=== PATIENT | female | born 1995 | race African-American/Black ===

== ENCOUNTER 2021-05-16 15:53 | Emergency (ER) | payer MEDICAID ==
[~2021-05-16] VITALS: Ht 162.6 cm; Wt 77.0 kg
[2021-05-16 16:05] VITALS: BP 131/91
[2021-05-16 17:16] LABS: CLARITY URINE CLOUDY (CLEAR); COLOR URINE YELLOW (YELLOW); KETONES URINE NEGATIVE (NEGATIVE); LEUKOCYTE ESTERASE URINE 1+ (NEGATIVE); NITRITE URINE POSITIVE (NEGATIVE); OCCULT BLOOD URINE 2+ (NEGATIVE); PROTEIN URINE NEGATIVE (NEGATIVE); SPECIFIC GRAVITY URINE 1.022 (1.005-1.030); UROBILINOGEN URINE 0.2 E.U./dL (0.2-1.0)
== END 2021-05-16 18:54 | disposition left against medical advice (07) ==
LOC: ER 15:53
DX: R10.30 Lower abdominal pain, unspecified (principal)
CPT/HCPCS: 81003; 81025; 99283